=== PATIENT | female | born 1965 | race African-American/Black ===

== ENCOUNTER 2023-04-05 18:16 | Emergency (ER) | payer MEDICAID, OTHER ==
[~2023-04-05] VITALS: Ht 175.3 cm; Wt 113.0 kg
[2023-04-05 18:33] VITALS: BP 159/94; O2SAT 100
[2023-04-05] MEDS ORDERED: CLIN-194 MT (20:26)
[2023-04-05 20:59] VITALS: PULSE 77; RESP 20; TEMP 98
== END 2023-04-05 21:00 | disposition home or self-care (01) ==
LOC: ER 20:49
DX: L97.229 Non-pressure chronic ulcer of left calf with unspecified severity (principal); L03.116 Cellulitis of left lower limb; I10 Essential (primary) hypertension
CPT/HCPCS: 81025; 99283